=== PATIENT | female | born 2000 | race Native Hawaiian/Other Pacific Islander ===

== ENCOUNTER 2018-09-02 01:15 | Emergency (ER) | payer SELFPAY ==
[~2018-09-02] VITALS: Ht 154.9 cm; Wt 55.5 kg
[2018-09-02 06:00] VITALS: BP 117/76
== END 2018-09-02 01:34 | disposition home or self-care (01) ==
LOC: EMS 01:15
DX: T74.21XA Adult sexual abuse, confirmed, initial encounter (principal); J45.909 Unspecified asthma, uncomplicated
CPT/HCPCS: 99283